=== PATIENT | male | born 1955 | race Caucasian/White ===

== ENCOUNTER 2017-03-18 22:38 | Emergency (ER) | payer BC ==
[~2017-03-18 22:38] MED LIST: ALLOPURINOL; ALLOPURINOL300 MG PO; ASTELIN137 MCG NS; ASTEPRO30 M1 NS; AUGMENTIN PO; COLACE100 MG PO; COMBIVENT1 PUFF INH; COUMADIN5 M2 PO; COUMADIN7.5 MG PO; FLAGYL500 MG PO; LEVAQUIN500 MG PO; LISINOPRIL; LOPRESSOR50 MG PO; LORTAB 5/5001 EA PO; LOVENOX100 MG/ML SQ; OMNARIS12.5 GM NS; ZESTRIL30 M1 PO; ZYRTEC10 M1 PO
[2017-03-18] MEDS ORDERED: COUMADIN2 M1 PO (23:03)
[2017-03-18] MEDS ORDERED: OMEPRAZOLE20 M3 PO (23:05)
[2017-03-19 00:02] LABS: INR 2.7 INR (0.9-1.1); PROTHROMBIN TIME 32.3 SECONDS (9.0-13.6)
== END 2017-03-19 00:46 ==
LOC: EDMED 22:38
PROVIDERS: Emergency Medicine
DX: S86.812A Strain of other muscle(s) and tendon(s) at lower leg level, left leg, initial encounter (principal); I10 Essential (primary) hypertension; K21.9 Gastro-esophageal reflux disease without esophagitis; X58.XXXA Exposure to other specified factors, initial encounter; Z86.718 Personal history of other venous thrombosis and embolism; Z86.711 Personal history of pulmonary embolism; Z79.01 Long term (current) use of anticoagulants; Z79.899 Other long term (current) drug therapy